=== PATIENT | female | born 1965 | race Hispanic/Latino ===

== ENCOUNTER 2017-03-07 21:58 | Emergency (ER) | payer MEDICARE ==
[2017-03-07 21:58] VITALS: BMI 21.9
[2017-03-07 22:05] VITALS: TEMP 98
[2017-03-07] MEDS ORDERED: Albuterol-Ipratrop 3 mg / 0.5 (3 ml) UD INH STA (22:31)
[2017-03-07 22:41] LABS: BASO # 0.1 K/uL (0.0-0.2); BASO % 1.2 % (0.0-2.0); EOS # 0.2 K/uL (0.0-0.7); HEMATOCRIT 41.9 % (34.0-47.0); LYMPH # 3.6 K/uL (1.0-4.3); LYMPH % 38.3 % (20.0-40.0); MEAN CELL VOLUME 92.6 fl (81.0-99.0); MEAN CORPUSCULAR HEMOGLOBIN 31.9 pg (27.0-31.0); MEAN CORPUSCULAR HGB CONC 34.4 g/dL (33.0-37.0); MEAN PLATELET VOLUME 9.2 fl (7.2-11.7); MONO # 0.8 K/uL (0.0-0.8); MONO % 8.1 % (0.0-10.0); NEUT # 4.8 K/uL (1.8-7.0); NEUT % 50.4 % (50.0-75.0); NRBC % 0.1 % (0.0-0.0); RED CELL DISTRIBUTION WIDTH 13.2 % (11.5-14.5); WHITE BLOOD COUNT 9.4 K/uL (4.8-10.8)
[2017-03-07] MEDS ORDERED: Albuterol-Ipratrop 3 mg / 0.5 (3 ml) UD ONE (22:44)
--- NOTE | 2017-03-07 22:52 | ED PDOC ---
HPI: Chest Pain Time Seen by Provider: 03/07/17 22:14 Chief Complaint (Nursing): Chest Pain Chief Complaint (Provider): Chest Pain History Per: Patient History/Exam Limitations: no limitations Onset/Duration Of Symptoms: Sudden Onset (1 hour ago) Current Symptoms Are (Timing): Still Present Additional Complaint(s): Mariela is a 51 y/o female who presents to the ED complaining of sudden onset chest pain with associated shortness of breath, cough, headache, and paresthesias to hands, onset 1 hour prior to arrival. States symptoms are similar to previous asthma attacks. Cough is productive of white phlegm. States that 1 hour ago she was upset while talking to her mother on the phone, discussing their dog having to be put down. Admits she is feeling very upset, anxious, and depressed about this event. PMD: Dr. Sanders Past Medical History Reviewed: Historical Data, Nursing Documentation, Vital Signs Vital Signs: Last Vital Signs Temp 98.0 F 03/07/17 22:01 Pulse 59 L 03/08/17 00:01 Resp 16 03/07/17 22:55 BP 104/56 L 03/07/17 22:55 Pulse Ox 99 03/08/17 00:01 - Medical History PMH: Asthma, Bronchitis, Hypercholesterolemia, Hypothyroidism Other PMH: Herniated disc, chronic back pain, abdominal hernia - Surgical History Surgical History: Other surgeries: Right foot surgery, Hysterectomy, uterine biopsy, tubal ligation - Family History Family History: States: Unknown Family Hx - Social History Current smoker - smoking cessation education provided: Yes Alcohol: None Drugs: Cannabis - Immunization History Hx Tetanus Toxoid Vaccination: No Hx Influenza Vaccination: Yes Hx Pneumococcal Vaccination: No - Home Medications Home Medications: Ambulatory Orders Medication Instructions Recorded Cyclobenzaprine [Flexeril] 5 mg PO Q8 PRN #12 tab 03/07/17 Naproxen [Naprosyn] 1 tab PO BID PRN #30 tab 03/07/17 - Allergies Allergies/Adverse Reactions: Allergies Allergy/AdvReac Type Severity Reaction Status Date / Time POLLEN Allergy SNEEZING Uncoded 11/18/14 17:37 Review of Systems ROS Statement: Except As Marked, All Systems Reviewed And Found Negative (as per HPI) Cardiovascular: Positive for: Chest Pain Respiratory: Positive for: Cough (productive of white phlegm), Shortness of Breath Neurological: Positive for: Headache, Other (paresthesias to hands) Psych: Positive for: Anxiety, Depression Physical Exam - Reviewed Nursing Documentation Reviewed: Yes Vital Signs Reviewed: Yes - Physical Exam Appears: Positive for: Non-toxic, In Acute Distress (mild painful) Head Exam: Positive for: ATRAUMATIC, NORMOCEPHALIC Skin: Positive for: Warm, Dry Eye Exam: Positive for: EOMI, PERRL ENT: Negative for: Pharyngeal Erythema, Tonsillar Exudate Neck: Positive for: Painless ROM, Supple Cardiovascular/Chest: Positive for: Regular Rate, Rhythm, Chest Non Tender. Negative for: Murmur Respiratory: Positive for: Normal Breath Sounds. Negative for: Wheezing, Respiratory Distress Gastrointestinal/Abdominal: Positive for: Soft. Negative for: Tenderness Back: Positive for: Vertebral Tenderness (diffuse lumbar) Extremity: Positive for: Normal ROM. Negative for: Pedal Edema, Deformity Lymphatic: Negative for: Adenopathy Neurologic/Psych: Positive for: Alert, Mood/Affect (Anxious affect). Negative for: Motor/Sensory Deficits - Laboratory Results Result Diagrams: 03/07/17 22:30 03/07/17 22:40 Interpretation Of Abn Labs: No emergently significant lab abnormalities. - ECG ECG: Positive for: Interpreted By Me, Viewed By Nh ECG Rhythm: Positive for: Normal QRS, Sinus Bradycardia. Negative for: ST/T Changes Rate: 59 O2 Sat by Pulse Oximetry: 99 (NC) Pulse Ox Interpretation: Normal - Radiology X-Ray: Interpreted by Nh X-Ray Interpretation: No Acute Disease - Progress Re-evaluation Time: 23:00 Condition: Improved Medical Decision Making Medical Decision Making: Time: 22:24 Impression: Asthma Exacerbation, Headache, Anxiety Initial Plan: --Labs --EKG --CXR --Duoneb 3 ml INH --Tylenol 975 mg PO --Peak Flow pre/post treatment --CT Head w/o contrast --Pending reevaluation 0831 CT FINDINGS: Brain: No acute intracranial hemorrhage. No significant white matter disease. No edema. Ventricles: No significant ventriculomegaly. Bones: No acute displaced fracture. Sinuses: Unremarkable as visualized. No acute sinusitis. Mastoid air cells: Unremarkable as visualized. No mastoid effusion. IMPRESSION: No acute intracranial hemorrhage, or suspicious mass effect. Scribe Attestation: Documented by Faby Ortega, acting as a scribe for Tahmina Darling MD Provider Scribe Attestation: All medical record entries made by the Scribe were at my direction and personally dictated by me. I have reviewed the chart and agree that the record accurately reflects my personal performance of the history, physical exam, medical decision making, and the department course for this patient. I have also personally directed, reviewed, and agree with the discharge instructions and disposition. Disposition - Clinical Impression Clinical Impression: Stress, Atypical chest pain Counseled Patient/Family Regarding: Studies Performed, Diagnosis, Need For Followup, Rx Given - Disposition Referrals: Naresh Sanders MD [Family Provider] - (FOLLOW UP WITH DR SANDERS IN 24-48 HOURS FOR REEVALUATION) Disposition: Routine/Home Disposition Time: 23:00 Condition: IMPROVED Prescriptions: Cyclobenzaprine [Flexeril] 5 mg PO Q8 PRN #12 tab PRN Reason: muscle spasm Naproxen [Naprosyn] 1 tab PO BID PRN #30 tab PRN Reason: Pain Instructions: How to Stop Smoking (ED), Cluster Headache (ED), Stress (ED), Noncardiac Chest Pain (ED)
[2017-03-07 22:55] VITALS: BP 104/56; RESP 16
[2017-03-07 22:55] LABS: ALB/GLOB RATIO 1.4 (1.0-2.1); ALCOHOL SERUM < 10 mg/dl (0-10); ALKALINE PHOSPHATASE 73 U/L (38-126); ALT/SGPT 33 U/L (9-52); AST/SGOT 23 U/L (14-36); BILIRUBIN,TOTAL 0.4 mg/dl (0.2-1.3); BLOOD UREA NITROGEN 20 mg/dl (7-17); CALCIUM 9.8 mg/dL (8.4-10.2); CARBON DIOXIDE 22 mmol/L (22-30); CHLORIDE 106 mmol/L (98-107); GFR AFRICAN-AMERICAN > 60; GLUCOSE,RANDOM 95 mg/dL (65-105); MAGNESIUM 2.3 MG/DL (1.6-2.3); PHOSPHOROUS 1.9 mg/dl (2.5-4.5); POTASSIUM 4.1 MMOL/L (3.6-5.0); SODIUM 139 mmol/l (132-148); TOTAL PROTEIN 7.5 G/DL (6.3-8.2)
[2017-03-07 23:50] VITALS: PULSE 59; O2SAT 99
--- NOTE | 2017-03-07 23:50 | CT ---
EXAM: CT Head Without Intravenous Contrast CLINICAL HISTORY: 51 years old, female; Pain; Headache; Additional info: Dizziness headache TECHNIQUE: Axial computed tomography images of the head/brain without intravenous contrast. All CT scans at this facility use one or more dose reduction techniques, viz.: automated exposure control; ma/kV adjustment per patient size (including targeted exams where dose is matched to indication; i.e. head); or iterative reconstruction technique. Coronal and sagittal reformatted images were created and reviewed. COMPARISON: No relevant prior studies available. FINDINGS: Brain: No acute intracranial hemorrhage. No significant white matter disease. No edema. Ventricles: No significant ventriculomegaly. Bones: No acute displaced fracture. Sinuses: Unremarkable as visualized. No acute sinusitis. Mastoid air cells: Unremarkable as visualized. No mastoid effusion. IMPRESSION: No acute intracranial hemorrhage, or suspicious mass effect.
--- NOTE | 2017-03-08 08:50 | RAD ---
HISTORY: chest pain sob COMPARISON: 08/19/2016 TECHNIQUE: Chest PA and lateral FINDINGS: LUNGS: No active pulmonary disease. PLEURA: No significant pleural effusion identified. No pneumothorax apparent. CARDIOVASCULAR: Normal. OSSEOUS STRUCTURES: No significant abnormalities. VISUALIZED UPPER ABDOMEN: Normal. OTHER FINDINGS: None. IMPRESSION: No active disease.
--- NOTE | 2017-03-08 10:36 | CARD ---
APPROVED REPORT EKG Measurement Heart [id number] <Conclusion> Sinus bradycardia Left axis deviation Abnormal ECG
== END 2017-03-08 00:07 | disposition home or self-care (01) ==
LOC: H.ER 21:58
DX: R07.89 Other chest pain (principal); F43.0 Acute stress reaction; F41.9 Anxiety disorder, unspecified; E03.9 Hypothyroidism, unspecified; G89.29 Other chronic pain
CPT/HCPCS: 70450; 71020; 80053; 81025; 83735; 84100; 84484; 85025; 93005; 94640; 99284; G0480